=== PATIENT | male | born 1970 | race Caucasian/White ===

== ENCOUNTER 2018-11-05 17:01 | Emergency (ER) | payer OTHER ==
[~2018-11-05] VITALS: Ht 182.9 cm; Wt 158.8 kg
[~2018-11-05 17:01] MED LIST: DOXYCYCLINE 10100 MG PO; TRAMADOL 50 MG50 MG PO
[2018-11-05 17:54] LABS: HEMATOCRIT 53.1 % (42.0-52.0); HEMOGLOBIN 17.8 gm/dL (14.0-18.0); MCH 30.3 pg (26.0-34.0); MCHC 33.5 g/dL (28.0-37.0); MCV 90.5 fL (80.0-100.0); MPV 9.2 fl. (7.2-11.1); NUCLEATED RBCS 0 /100WBC; PLATELET COUNT* 285 thou/uL (150-400); RBC 5.87 mil/uL (4.50-6.00); RDW-CV 14.2 % (10.5-14.5); WBC 13.7 thou/uL (4.0-11.0)
[2018-11-05 17:57] LABS: ANION GAP 8 mmol/L (7-16); BUN 17 mg/dL (7-18); CALCIUM 9.2 mg/dL (8.5-10.1); CHLORIDE 101 mmol/L (98-107); CO2 30 mmol/L (21-32); GLUCOSE 127 mg/dL (70-99); SODIUM 139 mmol/L (136-145)
[2018-11-05 18:07] LABS: ALBUMIN 3.8 g/dL (3.4-5.0); ALKALINE PHOSPHATASE 81 U/L (46-116); INR 1.1; LIPASE 96 U/L (73-393); PROTIME 11.4 Seconds (9.20-11.50); SGOT 17 U/L (15-37); SGPT 30 U/L (30-65); TOTAL BILIRUBIN 0.6 mg/dL (<0.1-1.0); TOTAL PROTEIN 7.8 g/dL (6.4-8.2); TROPONIN-I LEVEL <0.06 ng/mL (<0.06)
[2018-11-05 18:23] LABS: ABSOLUTE LYMPHOCYTES 2.5 thou/uL (0.8-5.3); ABSOLUTE MONOCYTES 0.8 thou/uL (0.0-1.2); ABSOLUTE NEUTROPHILS 10.4 thou/uL (1.6-8.1)
[2018-11-05 18:24] LABS: PLATELET ESTIMATE ADEQUATE
[2018-11-05] MEDS ORDERED: CARAFATE 1 GM TA1 G1 PO (18:52)
[2018-11-05 19:38] VITALS: BP 135/75
--- NOTE | 2018-11-06 12:29 | EKG ---
[place] [address] ELECTROCARDIOGRAM REPORT Name: NANCY NOLASCO [id number] Admission: 11/05/18 Attend Phys: Discharge: 11/05/18 Date of : 72 Report #: [id number] THIS REPORT FOR: //name// [facility] ED Test Date: 2018-11-05 Test Time: 17:05:08 Pat Name: NANCY NOLASCO Department: Room: Gender: M [employer]ing Machine Mechanic: YANNA : 1970 Requested By: Lilia Farias Order Number: [id number] MD: Leandro Cardenas Measurements Intervals [place] Rate: 99 P: 62 KS: 206 QRS: 66 QRSD: 97 T: 31 QT: 360 QTc: 462 Interpretive Statements Sinus rhythm Prolonged [place] interval Abnormal inferior Q waves Baseline wander in lead(s) V1,V4 No previous ECG available for comparison Electronically Signed On 11-06-2018 12:29:10 CDT by Leandro Cardenas [email or web address] <ELECTRONICALLY SIGNED> By: Leandro Cardenas MD, [facility] 11/06/18 1229 1705 04 Leandro Cardenas MD, FACC /EPI
== END 2018-11-05 19:40 | disposition home or self-care (01) ==
LOC: M.ERS 17:01
PROVIDERS: Personal Emergency Response Attendant
DX: K21.0 Gastro-esophageal reflux disease with esophagitis (principal); Z87.891 Personal history of nicotine dependence